=== PATIENT | female | born 1960 | race Caucasian/White ===

== ENCOUNTER → 2017-01-03 | Outpatient (CLI) | payer BC | LOC: MAMMO 09:19 | DX: Z12.31 Encounter for screening mammogram for malignant neoplasm of breast (principal) | CPT/HCPCS: G0202 ==

== ENCOUNTER 2017-11-10 22:30 | Emergency (ER) | payer BC ==
[~2017-11-10] VITALS: Ht 165.1 cm; Wt 70.5 kg
[2017-11-10] MEDS ORDERED: FLONASE SENSIM5.9 ML NS (22:54)
[2017-11-10] MEDS ORDERED: BACTRIM DS 8001 TAB PO (22:55)
[2017-11-10 23:21] LABS: EOS # 0.2 (0.04-0.40); EOS % 2.7 % (1.0-5.0); HEMOGLOBIN 13.3 g/dL (12.5-16.0); LYMPH# 3.4 (1.50-4.00); MEAN CELL VOLUME 87 fl (78-100); MEAN CORPUSCULAR HEMOGLOBIN 30 pg (27-31); MEAN CORPUSCULAR HGB CONC 34 g/dL (33-37); MEAN PLATELET VOLUME 9.9 fl (7.4-10.4); MONO # 0.6 (0.20-0.80); NEU # 3.5 (1.40-6.50); PLATELET COUNT 352 K/mm3 (130-400); RED BLOOD COUNT 4.46 M/mm3 (4.10-5.30); RED CELL DISTRIBUTION WIDTH 13.4 % (11.5-14.5); WHITE BLOOD COUNT 7.8 K/mm3 (4.8-10.8)
[2017-11-10 23:32] LABS: ALBUMIN 4.5 g/dL (3.5-5.0); BUN/CREATININE RATIO 20.2 (6.0-26.0); CALCIUM 9.2 mg/dL (8.4-10.2); POTASSIUM 3.6 mmol/L (3.6-5.0); TOTAL BILIRUBIN 0.3 mg/dL (0.2-1.3); TOTAL PROTEIN 7.9 g/dL (6.3-8.2)
[2017-11-11 00:25] LABS: URINE APPEARANCE HAZY; URINE COLOR YELLOW
[2017-11-11 00:26] LABS: URINE BILIRUBIN NEGATIVE (NEGATIVE); URINE BLOOD NEGATIVE (NEGATIVE); URINE GLUCOSE NEGATIVE (NEGATIVE); URINE KETONE 1+ (NEGATIVE); URINE LEUKOCYTE ESTERASE TRACE (NEGATIVE); URINE NITRATE NEGATIVE (NEGATIVE); URINE PROTEIN(semi-quant) NEGATIVE (NEGATIVE); URINE UROBILINOGEN NORMAL (NORMAL)
[2017-11-11] MEDS ORDERED: PERCOCET 325 MG1 TA2 PO (01:44)
[2017-11-11] MEDS ORDERED: ZOFRAN ODT4 MG PO (01:44)
[2017-11-11 02:05] VITALS: BP 118/72
== END 2017-11-11 02:05 | disposition home or self-care (01) ==
LOC: ED 22:30
PROVIDERS: Family Medicine
DX: R10.32 Left lower quadrant pain (principal); Z79.899 Other long term (current) drug therapy
CPT/HCPCS: J0595; J1885; J7030

== ENCOUNTER → 2017-11-16 | Outpatient (CLI) | payer BC ==
[2017-11-11 02:05] VITALS: BP 118/72
[~2017-11-16] MED LIST: BACTRIM DS 8001 TAB PO; FLONASE SENSIM5.9 ML NS; PERCOCET 325 MG1 TA2 PO; ZOFRAN ODT4 MG PO
== END ==
LOC: RAD 12:04
DX: N83.292 Other ovarian cyst, left side (principal)

== ENCOUNTER → 2018-02-21 | Outpatient (CLI) | payer BC | LOC: MAMMO 13:44 | DX: Z12.31 Encounter for screening mammogram for malignant neoplasm of breast (principal) ==

== ENCOUNTER → 2019-03-05 | Outpatient (CLI) | payer BC | LOC: MAMMO 16:00 | DX: Z12.31 Encounter for screening mammogram for malignant neoplasm of breast (principal) ==

== ENCOUNTER → 2020-03-04 | Outpatient (CLI) | payer BC | LOC: MAMMO 14:30 | DX: Z12.31 Encounter for screening mammogram for malignant neoplasm of breast (principal) ==

== ENCOUNTER → 2021-03-11 | Outpatient (CLI) | payer BC | LOC: MAMMO 03-09 15:15 | DX: Z12.31 Encounter for screening mammogram for malignant neoplasm of breast (principal) ==

== ENCOUNTER → 2022-06-14 | Outpatient (CLI) | payer BC | LOC: MAMMO 03-15 16:00 | DX: Z12.31 Encounter for screening mammogram for malignant neoplasm of breast (principal) ==

== ENCOUNTER → 2024-01-29 | Outpatient (CLI) | payer BC | LOC: MAMMO 16:04 | DX: Z12.31 Encounter for screening mammogram for malignant neoplasm of breast (principal) ==